=== PATIENT | female | born 1935 | race Caucasian/White ===

== ENCOUNTER 2016-12-06 14:32 | Observation (INO) ==
--- NOTE | 2016-12-06 14:54 | Cat Scan Report ---
CLINICAL INFORMATION: Code stroke - extremity weakness COMPARISON: 01/22/2014. TECHNIQUE: 2.5 mm helical slices were obtained in the skull base to vertex. Following reconstruction, axial reformatted images were reviewed at bone and parenchymal windows. FINDINGS: The ventricles, sulci, fissures, and cisterns are normal in size and configuration. No extra-axial fluid collections are identified. The cerebrum, brainstem and cerebellum are unremarkable. There is no evidence of hemorrhage, mass effect, or edema. Bone windows show no osseous abnormality. IMPRESSION: Normal head CT without contrast. Interpreted and Authenticated by: Deandre Gustafson 12/06/16
[2016-12-06 15:12] LABS: Basophils # (Auto) 0 K/mcL (0.0-0.3); Basophils % (Auto) 0.4 % (0.0-2.0); Eosinophils # (Auto) 0.2 K/mcL (0.0-0.7); Eosinophils % (Auto) 2.8 % (0.0-7.0); Granulocytes % (Auto) 57.1 % (38.0-78.0); Lymphocytes # (Auto) 2.4 K/mcL (1.5-4.8); Lymphocytes % (Auto) 32.6 % (15.5-49.0); Mean Cell Volume 88.1 fL (80.0-100.0); Mean Corpuscular HGB Conc 33.6 g/dL (31.0-36.0); Mean Corpuscular Hemoglobin 29.6 pg (26.0-34.0); Monocytes # (Auto) 0.5 K/mcL (0.1-0.9); Monocytes % (Auto) 7.1 % (1.0-12.0); Platelet Count 236 K/mcL (140-440); RBC 5.14 M/mcL (4.00-5.20); Red Cell Distribution Width 13.7 % (11.5-14.5)
[2016-12-06] MEDS ORDERED: hydrALAZINE 20 MG/ML VIAL IV ONE (15:17)
[2016-12-06] MEDS ORDERED: 0.9 % SODIUM CHLORIDE 1,000 ML IV ONE (15:45)
[2016-12-06 16:37] LABS: ALT/SGPT 15 U/l (0-40); Albumin 4.3 gm/dL (3.2-5.2); Albumin/Globulin Ratio 1.5 (1.0-2.3); Alkaline Phosphatase 86 U/L (39-117); Blood Urea Nitrogen 13 mg/dl (8-23)
--- NOTE | 2016-12-06 16:57 | Emergency Department Note ---
Neuro HPI - General Chief Complaint: Neuro Symptoms/Deficit Stated Complaint: Neuro deficit Time Seen by Provider: 12/06/16 14:45 Source: patient Mode of arrival: ambulatory Limitations: no limitations - History of Present Illness HPI Narrative: 80-year-old female who comes in for left-sided weakness, left-sided facial droop , confusion and facial numbness within the last 1-2 hours. Was first noted by her who brought her in. Blood pressure is up at 193/100. Previous history of TIA about 6 months ago with complete resolution of symptoms. Denies nausea vomiting diarrhea recent illness fever chills. Initial NIH was 5 but improving; ABC score was 6 Her regular doctor, Dr. Lewis called me and discussed the case with me-he notes that he did an extensive workup on her about 8 months ago and did not find any cause for her TIA. Echo was noted to be near normal - Related Data Home Medications: Home Medications Medication Instructions Recorded Confirmed Losartan [Cozaar] 25 mg PO DAILY 12/06/16 12/06/16 Aspirin [Maria Luisa Chewable Aspirin] 81 mg PO DAILY 12/07/16 12/07/16 Calcium Carbonate [Calcium] 500 mg PO DAILY 12/07/16 12/07/16 Calcium/D3/Mag Ox/Recreational Therapy Technician/Louis/Zn 1 each PO DAILY 12/07/16 12/07/16 [Caltrate+D3 Plus Mineral Minis] Carboxymethylcellulose Sodium 15 ml OP PRN PRN 12/07/16 12/07/16 [Refresh Tears] Multivit-Min/Iron/Folic/Lutein 1 each PO DAILY 12/07/16 12/07/16 [Centrum Silver Women Tablet] Willard-3/Dha/Epa/Fish Oil [Fish Oil 1,000 mg PO DAILY 12/07/16 12/07/16 1,000 mg Softgel] Allergies/Adverse Reactions: Allergies Allergy/AdvReac Type Severity Reaction Status Date / Time Amoxicillin Allergy Mild Hives Verified 12/06/16 23:09 Review of Systems All systems ED: reviewed and negative except as stated. Past Medical History - Past Medical History Attestation: Yes: The following information was validated with the patient. Medical history: Reports: hypertension - Social History smoking status: Never smoker Physical Exam Normocephalic atraumatic. Conjunctive are clear sclerae nonicteric. No nasal discharge or congestion. Oropharynx is pink and moist. She does have a little bit of a left-sided nasolabial fold droop but this resolves with smiling. Her smile is symmetrical and her tongue is midline. Neck is supple without lymphadenopathy thyromegaly or carotid bruit. Heart is regular rate and rhythm no murmurs appreciated. Lungs are clear to auscultation bilaterally without wheezes rales rhonchi or respiratory distress. Abdomen is soft nontender nondistended. No peritoneal signs or guarding. No pedal edema. +2 radial pulse. Normal bilateral substation engineer. Do not detect any significant left-sided upper extremity weakness. Additionally she is able to lift both legs off the bed monitor time with approximately equal strength. Besides the left-sided nasolabial fold droop I do not see any focal deficits. Difficult to tell if she is actually confused because I do not know her baseline-however she is answering questions appropriately. There may be some short-term memory deficit. No dysarthria ataxia or tremor. Normal finger to nose testing. - General Limitations: no limitations Course Vital Signs Temperature 97.6 F 12/06/16 14:32 Pulse Rate 80 12/06/16 14:32 Respiratory Rate 18 12/06/16 14:32 Blood Pressure 193/100 12/06/16 14:32 Pulse Oximetry (%) 97 12/06/16 14:32 Temperature 96.7 F L 12/07/16 08:00 Pulse Rate 72 12/07/16 04:00 Respiratory Rate 20 12/07/16 08:00 Blood Pressure 158/75 12/07/16 08:00 Pulse Oximetry (%) 95 12/07/16 08:00 Neuro Symptoms/Deficit - Lab Data Lab results reviewed: Yes I reviewed the patient's lab results. Result diagrams: 12/07/16 04:15 12/07/16 04:15 Lab Results 12/06/16 12/06/16 12/06/16 Range/Units 14:22 14:42 14:43 WBC 7.3 (4.5-11.0) K/mcL RBC 5.14 (4.00-5.20) M/mcL Hgb 15.2 H (12.0-15.0) g/dL Hct 45.3 (36.0-48.0) % POC Hct 46.0 (36.0-48.0) % MCV 88.1 (80.0-100.0) fL MCH 29.6 (26.0-34.0) pg MCHC 33.6 (31.0-36.0) g/dL RDW 13.7 (11.5-14.5) % Plt Count 236 (140-440) K/mcL MPV 8.9 (7.4-10.4) fL Gran % 57.1 (38.0-78.0) % Lymph % (Auto) 32.6 (15.5-49.0) % [place] % (Auto) 7.1 (1.0-12.0) % Eos % (Auto) 2.8 (0.0-7.0) % Baso % (Auto) 0.4 (0.0-2.0) % Gran # 4.2 (1.8-8.0) K/mcL Lymph # (Auto) 2.4 (1.5-4.8) K/mcL [place] # (Auto) 0.5 (0.1-0.9) K/mcL Eos # (Auto) 0.2 (0.0-0.7) K/mcL Baso # (Auto) 0 (0.0-0.3) K/mcL POC PT (11.9-14.5) sec POC INR (0.9-1.2) APTT POC Sodium 140 (133-145) mmol/L Sodium TNP POC Potassium 4.4 (3.3-5.1) mmol/L Potassium TNP POC Chloride 103 (96-108) mmol/L Chloride TNP Carbon Dioxide TNP POC Total CO2 28 (22-30) mmol/L Anion Gap TNP POC BUN 18 (8-23) mg/dl BUN TNP Creatinine TNP POC Creatinine 0.9 (0.6-1.1) mg/dl GFR Calculation TNP BUN/Creatinine Ratio TNP Glucose TNP POC Glucose 95 (70-105) mg/dL Calcium TNP POC WB Ioniz Calcium 1.16 (1.16-1.32) mmol/L Total Bilirubin TNP AST TNP ALT TNP Alkaline Phosphatase TNP Troponin T Total Protein TNP Albumin TNP Globulin TNP Albumin/Globulin Ratio TNP Triglycerides 112 (<150) mg/dl Cholesterol 302 H (<200) mg/dl LDL Cholesterol, Calc 171 H (SEE CHART) mg/dl Non-HDL Cholesterol 193 H (LDL TARGET+30) HDL Cholesterol 109 (>40) mg/dl Urine Color Urine Appearance Urine pH (5.0-9.0) Ur Specific [place] (1.000-1.035) Urine Protein (NEG) mg/dL Urine Glucose (UA) (NEG) mg/dL Urine Ketones (NEG) mg/dL Urine Occult Blood (<0.03) mg/dL Urine Nitrate (NEG) Urine Bilirubin (NEG) mg/dL Urine Urobilinogen (NEG) mg/dL Ur Leukocyte Esterase (NEG) /uL Urine RBC (0-1) /hpf Urine WBC (0-4) /hpf Ur Squamous Epith Cells (0-4) /hpf Urine Bacteria (0) /hpf Ur Culture Indicated? 12/06/16 12/06/16 12/06/16 Range/Units 14:43 14:55 15:45 WBC (4.5-11.0) K/mcL RBC (4.00-5.20) M/mcL Hgb (12.0-15.0) g/dL Hct (36.0-48.0) % POC Hct (36.0-48.0) % MCV (80.0-100.0) fL MCH (26.0-34.0) pg MCHC (31.0-36.0) g/dL RDW (11.5-14.5) % Plt Count (140-440) K/mcL MPV (7.4-10.4) fL Gran % (38.0-78.0) % Lymph % (Auto) (15.5-49.0) % [place] % (Auto) (1.0-12.0) % Eos % (Auto) (0.0-7.0) % Baso % (Auto) (0.0-2.0) % Gran # (1.8-8.0) K/mcL Lymph # (Auto) (1.5-4.8) K/mcL [place] # (Auto) (0.1-0.9) K/mcL Eos # (Auto) (0.0-0.7) K/mcL Baso # (Auto) (0.0-0.3) K/mcL POC PT 10.9 L (11.9-14.5) sec POC INR 0.9 (0.9-1.2) APTT TNP POC Sodium (133-145) mmol/L Sodium 140 POC Potassium (3.3-5.1) mmol/L Potassium 4.1 POC Chloride (96-108) mmol/L Chloride 102 Carbon Dioxide 25 POC Total CO2 (22-30) mmol/L Anion Gap 13.0 POC BUN (8-23) mg/dl BUN 13 Creatinine 0.9 POC Creatinine (0.6-1.1) mg/dl GFR Calculation 60 BUN/Creatinine Ratio Glucose 94 POC Glucose (70-105) mg/dL Calcium 9.6 POC WB Ioniz Calcium (1.16-1.32) mmol/L Total Bilirubin 0.8 AST 20 ALT 15 Alkaline Phosphatase 86 Troponin T TNP Total Protein 7.1 Albumin 4.3 Globulin 2.8 Albumin/Globulin Ratio 1.5 Triglycerides (<150) mg/dl Cholesterol (<200) mg/dl LDL Cholesterol, Calc (SEE CHART) mg/dl Non-HDL Cholesterol (LDL TARGET+30) HDL Cholesterol (>40) mg/dl Urine Color Urine Appearance Urine pH (5.0-9.0) Ur Specific [place] (1.000-1.035) Urine Protein (NEG) mg/dL Urine Glucose (UA) (NEG) mg/dL Urine Ketones (NEG) mg/dL Urine Occult Blood (<0.03) mg/dL Urine Nitrate (NEG) Urine Bilirubin (NEG) mg/dL Urine Urobilinogen (NEG) mg/dL Ur Leukocyte Esterase (NEG) /uL Urine RBC (0-1) /hpf Urine WBC (0-4) /hpf Ur Squamous Epith Cells (0-4) /hpf Urine Bacteria (0) /hpf Ur Culture Indicated? 12/06/16 12/06/16 12/06/16 Range/Units 15:45 15:45 17:17 WBC (4.5-11.0) K/mcL RBC (4.00-5.20) M/mcL Hgb (12.0-15.0) g/dL Hct (36.0-48.0) % POC Hct (36.0-48.0) % MCV (80.0-100.0) fL MCH (26.0-34.0) pg MCHC (31.0-36.0) g/dL RDW (11.5-14.5) % Plt Count (140-440) K/mcL MPV (7.4-10.4) fL Gran % (38.0-78.0) % Lymph % (Auto) (15.5-49.0) % [place] % (Auto) (1.0-12.0) % Eos % (Auto) (0.0-7.0) % Baso % (Auto) (0.0-2.0) % Gran # (1.8-8.0) K/mcL Lymph # (Auto) (1.5-4.8) K/mcL [place] # (Auto) (0.1-0.9) K/mcL Eos # (Auto) (0.0-0.7) K/mcL Baso # (Auto) (0.0-0.3) K/mcL POC PT (11.9-14.5) sec POC INR (0.9-1.2) APTT 27 POC Sodium (133-145) mmol/L Sodium POC Potassium (3.3-5.1) mmol/L Potassium POC Chloride (96-108) mmol/L Chloride Carbon Dioxide POC Total CO2 (22-30) mmol/L Anion Gap POC BUN (8-23) mg/dl BUN Creatinine POC Creatinine (0.6-1.1) mg/dl GFR Calculation BUN/Creatinine Ratio Glucose POC Glucose (70-105) mg/dL Calcium POC WB Ioniz Calcium (1.16-1.32) mmol/L Total Bilirubin AST ALT Alkaline Phosphatase Troponin T < 0.01 Total Protein Albumin Globulin Albumin/Globulin Ratio Triglycerides (<150) mg/dl Cholesterol (<200) mg/dl LDL Cholesterol, Calc (SEE CHART) mg/dl Non-HDL Cholesterol (LDL TARGET+30) HDL Cholesterol (>40) mg/dl Urine Color Straw Urine Appearance Clear Urine pH 8.0 (5.0-9.0) Ur Specific [place] 1.004 (1.000-1.035) Urine Protein Neg (NEG) mg/dL Urine Glucose (UA) Negative (NEG) mg/dL Urine Ketones Neg (NEG) mg/dL Urine Occult Blood 0.03 A (<0.03) mg/dL Urine Nitrate Neg (NEG) Urine Bilirubin Neg (NEG) mg/dL Urine Urobilinogen Neg (NEG) mg/dL Ur Leukocyte Esterase Neg (NEG) /uL Urine RBC < 1 (0-1) /hpf Urine WBC 0 (0-4) /hpf Ur Squamous Epith Cells 0 (0-4) /hpf Urine Bacteria 0 (0) /hpf Ur Culture Indicated? No - Radiology Data Radiology results reviewed: Yes I reviewed the patient's radiology results. Head CT showed no acute abnormality - EKG Data EKG attestation: Yes I reviewed and interpreted this EKG. EKG results narrative: EKG shows a rate of 66 normal sinus rhythm Disposition Clinical Impression: TIA (transient ischemic attack) Qualifiers: Transient cerebral ischemia type: unspecified Qualified Code(s): G45.9 - Transient cerebral ischemic attack, unspecified Summary: Likely TIA with most symptoms resolving-rapidly improving. I discussed the situation with tele-stroke Dr. Deyanira Wu who felt while the patient was a TPA candidate her symptoms were rapidly improving and therefore did not warrant the risk. She recommended patient be admitted for observation. To that end I discussed the case with Dr. Estes hospitalist who agreed to accept the patient Disposition: Xfer As Inpt ([facility]) Condition: Fair
--- NOTE | 2016-12-06 17:54 | Internal Med History&Physical ---
Medical - H&P: HPI Patient information: Note initiated : 12/06/16 at 5:50 pm Service Date, if different from initiated Date: [] Patient: Melvi Mann a 80 y/o F admitted on for Neuro deficit. Chief Complaint: [] History of present illness: Ms. Mann is a 80 year old F with h/o htn brought in by her as she was acting confused and left side weakness, and facial droop The patient notes she remembers going to [place] for lunch, coffee. She was ok on the way back but very anxious and was crying and hyperventilating in the car while her drove back. ( she admits she is very anxious in the car when he drives). In the house she was in [facility] garden and then remembers her bringing her to the hospital. not available at bedside to verify story, pt next remembers being in the hospital As per the chart notes pt presented with Aoox3, slight left facial droop, some left upper extremity weakness, some confusion and perioral numbness. Stroke protocol activiated and patient had CT head and mri head which is negative, EKG , and labs. Tele stroke saw the patient, clinically improving, NIHSS score was 5 on prestation with rapid improvement, TPA not given Patient was advised to be admitted for observation. The patient has had similar episode in the past, nearly 6 months ago, not sure about the workup. takes asa and losartan. BP runs high even at home as per patient. All systems: reviewed and no additional remarkable complaints except as stated ( as per HPI.) Medical - H&P: PMH Medical history: HTN TIA anxiety Surgical history: tonsillectomy Pertinent family history: father with heart issues no h/o cva Social history: non smoker social etoh no drugs lives with . Medical - H&P: Meds Home Medications Medication Instructions Recorded Confirmed Type Losartan [Cozaar] 25 mg PO DAILY 12/06/16 12/06/16 History Allergies Allergy/AdvReac Type Severity Reaction Status Date / Time Unable to Assess Allergy Unverified 12/06/16 14:47 Medical - H&P: Exam - Constitutional Vitals: Temp Pulse Resp BP Pulse Ox 97.6 F 80 14 160/82 100 12/06/16 14:32 12/06/16 17:15 12/06/16 17:15 12/06/16 16:46 12/06/16 17:15 Exam: GENERAL: The patient is a well-developed, well-nourished in no apparent distress. Is alert and oriented x3. VITAL SIGNS: Reviewed and as noted elsewhere. HEENT: Head is normocephalic and atraumatic. Extraocular muscles are intact. Pupils are equal, round, and reactive to light. Nares appeared normal. Mouth appears any without lesions. Mucous membranes are moist. NECK: Normal to inspection, Supple, No lymphadenopathy or thyromegaly. LUNGS: Air entry equal on both sides, no wheezing, crackles or rhonchi noted. No accessory muscles of respiration HEART: Regular rate and rhythm normal, S1 and S2 heard, no Gallop, S3 or Rub Noted, No Gross murmur heard. ABDOMEN: Soft, nontender, and nondistended. Positive bowel sounds. No hepatosplenomegaly was noted. EXTREMITIES: No cyanosis, clubbing, rash, lesions or edema. NEUROLOGIC: CN 7, mild left droop, rest of CN normal, aoox3, moving all extremities, normal sensation to touch, 5/5 strength in all extremities. PSYCHIATRIC: Normal affect, Normal Mood. Appropriate Behavior. SKIN: No ulceration or wounds noted, No jaundice, No rash noted. Medical - H&P: Reslt - Labs CBC & Chem 7: 12/06/16 14:43 12/06/16 15:45 Labs: Short CBC 12/06/16 Range/Units 14:43 WBC 7.3 (4.5-11.0) K/mcL Hgb 15.2 H (12.0-15.0) g/dL Hct 45.3 (36.0-48.0) % Plt Count 236 (140-440) K/mcL BMP 12/06/16 12/06/16 14:42 15:45 Sodium TNP 140 Potassium TNP 4.1 Chloride TNP 102 Carbon Dioxide TNP 25 BUN TNP 13 Creatinine TNP 0.9 Glucose TNP 94 Calcium TNP 9.6 Cardiac Enzymes 12/06/16 12/06/16 Range/Units 14:43 15:45 Troponin T TNP < 0.01 Liver Function 12/06/16 12/06/16 Range/Units 14:42 15:45 Total Bilirubin TNP 0.8 AST TNP 20 ALT TNP 15 Alkaline Phosphatase TNP 86 Albumin TNP 4.3 - EKG Data EKG comments: 12/06/16 17:58 LEft axis lafb sinus rhythm no old ekg. Medical - H&P: A/P - Narrative A/P Narrative: a/p TIA Risk factors, HTN, HLD as per pt, Age CT and MRI head neg Get MRA head and MRA neck Get echo monitor on tele Given second episode of TIA, stop ASA and start on clopidogrel get lipid profile, check A1c Start on pravastatin, pt reports intolerance to statin in the past, will try and see if she can tolerate this one. Consider coq 10 if needed. HTN \ BP uncontrolled increase dose of losartan to 50mg qdaily, DVT hep sq (no cva on Ct, no bleed) Full code
[2016-12-06 18:37] LABS: Appearance,Urine CLEAR; Bacteria,Urine 0 /hpf (0); Bilirubin,Urine NEG (NEG); Color,Urine STRAW; Glucose,Urine (UA) NEGATIVE (NEG); Leukocyte Esterase,Urine NEG /uL (NEG); Nitrate,Urine NEG (NEG); Protein,Urine NEG (NEG); Specific Gravity,Urine 1.004 (1.000-1.035); Urine Blood 0.03 mg/dL (<0.03); Urine RBC < 1 /hpf (0-1); Urine Squamous Epithelial Cell 0 /hpf (0-4); Urine WBC 0 /hpf (0-4); Urobilinogen,Urine NEG (NEG)
[2016-12-06] MEDS ORDERED: IOPAMIDOL 100 ML BOTTLE IJ ONE (19:13)
[2016-12-06] MEDS ORDERED: MAGNESIUM HYDROXIDE 30 ML ORAL.SUSP PO PRN (19:24)
[2016-12-06] MEDS ORDERED: ACETAMINOPHEN 325 MG TABLET PO PRN (19:24)
[2016-12-06] MEDS ORDERED: ONDANSETRON 4 MG/2 ML VIAL IV PRN (19:24)
[2016-12-06] MEDS ORDERED: NALOXONE HCL 0.4 MG/ML VIAL IV PRN (19:24)
[2016-12-06] MEDS ORDERED: HYDROcodone/APAP 5/325MG TABLET PO PRN (19:24)
[2016-12-06] MEDS: 0.9 % SODIUM CHLORIDE 1,000 ML IV SCH (19:50)
[2016-12-06] MEDS: HEPARIN 5,000 UNIT/ML VIAL SQ SCH (20:00)
[2016-12-06] MEDS: CLOPIDOGREL 75 MG TABLET PO SCH (20:00)
[2016-12-06] MEDS: SIMVASTATIN 20 MG TABLET PO SCH (20:00)
[2016-12-06 20:10] LABS: HDL Cholesterol 109 mg/dl (>40); LDL Cholesterol,Calculated 171 mg/dl (SEE CHART)
[2016-12-07 05:22] LABS: Basophils # (Auto) 0.1 K/mcL (0.0-0.3); Basophils % (Auto) 0.6 % (0.0-2.0); Eosinophils # (Auto) 0.2 K/mcL (0.0-0.7); Granulocytes % (Auto) 54.4 % (38.0-78.0); Lymphocytes # (Auto) 2.7 K/mcL (1.5-4.8); Lymphocytes % (Auto) 33.5 % (15.5-49.0); Mean Cell Volume 88.2 fL (80.0-100.0); Mean Corpuscular HGB Conc 34.3 g/dL (31.0-36.0); Mean Corpuscular Hemoglobin 30.3 pg (26.0-34.0); Monocytes # (Auto) 0.7 K/mcL (0.1-0.9); Monocytes % (Auto) 8.5 % (1.0-12.0); Platelet Count 215 K/mcL (140-440); RBC 4.65 M/mcL (4.00-5.20); Red Cell Distribution Width 13.9 % (11.5-14.5)
[2016-12-07 05:40] LABS: ALT/SGPT 14 U/l (0-40); Albumin 3.6 gm/dL (3.2-5.2); Albumin/Globulin Ratio 1.4 (1.0-2.3); Alkaline Phosphatase 75 U/L (39-117); Bilirubin,Direct < 0.2 mg/dL (0.0-0.3); Blood Urea Nitrogen 12 mg/dl (8-23); Gamma Glutamyl Transpeptidase 10 U/L (5-36); Magnesium 2.1 mg/dL (1.6-2.5); Uric Acid 5.1 mg/dL (2.5-8.0)
[2016-12-07] MEDS: CLOPIDOGREL 75 MG TABLET PO SCH (08:32)
[2016-12-07] MEDS: HEPARIN 5,000 UNIT/ML VIAL SQ SCH ×2 (08:32→21:07)
[2016-12-07] MEDS: LOSARTAN 25 MG TABLET PO SCH (08:32)
[2016-12-07] MEDS: 0.9 % SODIUM CHLORIDE 1,000 ML IV SCH ×2 (09:53→23:38)
--- NOTE | 2016-12-07 11:20 | Magnetic Resonance Report ---
CLINICAL INFORMATION: TIA COMPARISON: None. TECHNIQUE: 3D [id number] SPGR was used to study the cerebral vasculature. FINDINGS: The signal within the intracranial cerebral arteries with diminished. The intracranial internal carotid, anterior and middle cerebral, vertebral basilar and posterior cerebral arteries are all grossly normal. Axial diffusion images show no evidence of restricted diffusion to suggest acute infarct IMPRESSION: Suboptimal study, but no significant abnormality. Consider cerebral CTA if patient can tolerate IV contrast Interpreted and Authenticated by: Deandre Gustafson 12/07/16
--- NOTE | 2016-12-07 11:22 | Magnetic Resonance Report ---
CLINICAL INFORMATION: TIA COMPARISON: None. TECHNIQUE:2D and [id number] and 3D MOTSA [id number] images were obtained prior to gadolinium. Following gadolinium, coronal 3D [id number] images were acquired. FINDINGS: The thoracic aortic arch is normal in contour and caliber. Aortic branching is conventional. There is mild (less than 50%) stenosis of the subclavian artery origin. The right subclavian, brachiocephalic, both common, internal and external carotid and vertebral arteries are widely patent. 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 The remaining exam is unremarkable Interpreted and Authenticated by: Deandre Gustafson 12/07/16
--- NOTE | 2016-12-07 12:21 | Internal Med Progress Note ---
Medical - PN: Subj Patient information: Note initiated : 12/07/16 at 12:19 pm Service Date, if different from initiated Date: [] Patient: Melvi Mann 80 y/o F admitted on 12/06/16 for Neuro deficit. Chief Complaint: [] Interval history: Patient seen examined doing well today, Neurological deficits resolved, she feels back to baseline Echo reveiwed with product developer, MRA head study was suboptimal. Will get CTA head. MRA Neck neg for severe stenosis. tele neg for significant arrythmia. Pertinent ROS: Denies headache, dizziness Denies chest pain, palpitations Denies cough or shortness of breath Denies abdominal pain, nausea or vomiting. - Constitutional Vitals: Vital Signs Temp Pulse Resp BP Pulse Ox 97.4 F 72 16 158/77 98 12/07/16 12:00 12/07/16 04:00 12/07/16 12:00 12/07/16 12:00 12/07/16 12:00 Period Temp Pulse Resp BP Sys/Lynn Pulse Ox Last 24 Hr 96.7 F-97.9 F 67-72 16-20 150-158/73-82 94-98 Intake and Output 12/06/16 12/07/16 12/07/16 21:59 05:59 13:59 Intake Total 360 / 1360 240 / 240 1200 / 1200 Output Total 400 / 400 275 / 275 Balance 360 / 1360 -160 / -160 925 / 925 Weight 138 lb 11.2 oz Intake & Output: Intake & Output 12/06/16 12/07/16 12/07/16 21:59 05:59 13:59 Intake Total 360 / 1360 240 / 240 1200 / 1200 Output Total 400 / 400 275 / 275 Balance 360 / 1360 -160 / -160 925 / 925 Weight 138 lb 11.2 oz Intake: IV 1000 / 1000 Sodium Chloride 0.9% 1, 1000 / 1000 000 ml @ 75 mls/hr IV . [id number] [facility] Rx#:[id number] Oral 360 / 360 240 / 240 200 / 200 Output: Void Amount 400 / 400 275 / 275 Other: Meal Nourishment/Supplement Breakfast Percent of Meal Consumed 100% 100% Feeding Ability Independent # Voids 1 1 Exam: Constitutional; Afebrile, cooperative, alert, not in distress. Eyes- No icterus, , No periorbital swelling Ears- Ext ear normal, hearing normal to conversation. Neck- Midline trachea, supple Respiratory system: Air Entry equal on both sides, No crackles or wheezing, no rhonchi. CVS- Rate rhythm regular, S1,S2 heard, no gallop, no rub. Abdomen- Soft nontender abdomen, no organomegaly, no tenderness, no guarding or rigidity, SKEIN SPOOLER- AOOx3, moving all extremities, no gross focal deficit noted. Medical - PN: Obj Da - Labs CBC & Chem 7: 12/07/16 04:15 12/07/16 04:15 Labs: Abnormal Lab Results 12/07/16 04:15 Calcium 8.4 L Meds: Medications Acetaminophen (Tylenol) 650 mg PO Q6HP PRN PRN Reason: PAIN/FEVER > 101 Last Admin: 12/07/16 02:56 Dose: 650 mg Hydrocodone Bitart/Acetaminophen ([place] 5/325mg) 1 tab PO Q4HP PRN PRN Reason: Pain Clopidogrel Bisulfate (Plavix) 75 mg PO DAILY [facility] Last Admin: 12/07/16 08:32 Dose: 75 mg Heparin Sodium (Porcine) (Heparin) 5,000 unit SQ Q12 [facility] Last Admin: 12/07/16 08:32 Dose: 5,000 unit Sodium Chloride (Sodium Chloride 0.9%) 1,000 mls @ 75 mls/hr IV .[id number] [facility] Last Admin: 12/07/16 09:53 Dose: 75 mls/hr Losartan Potassium (Cozaar) 50 mg PO DAILY [facility] Last Admin: 12/07/16 08:32 Dose: 50 mg Magnesium Hydroxide (Milk Of Magnesia) 30 ml PO DAILYP PRN PRN Reason: Constipation Naloxone HCl (Narcan) 0.1 mg IV Q2MIN PRN PRN Reason: Opiate Reversal Ondansetron HCl (Zofran) 4 mg IV Q4HP PRN PRN Reason: Nausea And Vomiting Simvastatin (Zocor) 20 mg PO HS [facility] Last Admin: 12/06/16 20:00 Dose: 20 mg Medical - PN: A/P - Time Spent With Patient Total time spent is greater than 50% in coordination of care (as documented) at patient's floor/unit and/or counseling patient: - Narrative A/P Narrative: a/P TIA: resolved, CTA head pending, Echo done has MR mild to moderate, no la lv thrombus, noted. tele neg, MRA neck neg, CTA head pending. MRI head was not done this visit. HTN: BP uncontrolled, on losartan 50, start on amlodipine 5mg qd HLD: high LDL and HDL, started on statins, DVT hep sq Diet Cardiac dispo likely d/c home today evening or tomorrow. Medical - PN: Qual - Stroke Onset of Symptoms Date: 12/06/16 Onset of Symptoms Time: 11:30 Symptom Onset Unknown: No - VTE Deep Vein Thrombosis/Pulmonary Embolism Present on Admission: No
[2016-12-07] MEDS: amLODIPine 5 MG TABLET PO SCH (12:44)
--- NOTE | 2016-12-07 19:29 | Cat Scan Report ---
CLINICAL INFORMATION: TIA: COMPARISON: None. TECHNIQUE: 80 cc of Isovue-300 were injected intravenously , and using SmartPrep to maximize cerebral arterial opacification, 0.625 mm helical slices were obtained from the skull base through the cerebral vertex. Following reconstruction , sagittal, coronal and axial reformatted images were processed and reviewed at multiple windows and levels. 3D volume rendered and MIP images were also obtained at an independent workstation. FINDINGS: The intracranial internal carotid, anterior and middle cerebral, intracranial vertebral basilar and posterior arteries and branches are normal in contour and caliber with no evidence of occlusion, stenosis or other abnormality. The superficial and deep cerebral veins and venous sinuses are widely patent IMPRESSION: Normal Interpreted and Authenticated by: Deandre Gustafson 12/07/16
[2016-12-07] MEDS: SIMVASTATIN 20 MG TABLET PO SCH (21:07)
[2016-12-08] MEDS ORDERED: ASPIRIN 81 MG TAB.CHEW PO SCH (09:00)
[2016-12-08] MEDS: amLODIPine 5 MG TABLET PO SCH (09:30)
[2016-12-08] MEDS: HEPARIN 5,000 UNIT/ML VIAL SQ SCH (09:30)
[2016-12-08] MEDS: LOSARTAN 25 MG TABLET PO SCH (09:30)
[2016-12-08] MEDS: CLOPIDOGREL 75 MG TABLET PO SCH (09:30)
[2016-12-08] MEDS: 0.9 % SODIUM CHLORIDE 1,000 ML IV SCH (11:54)
--- NOTE | 2016-12-08 13:01 | Echocardiogram Report ---
ECHOCARDIOGRAM: 2-D and M-mode echocardiography with cardiac Doppler and color flow imaging were performed with a [employer] Aplio MX. Indication is TIA. Overall size of the four cardiac chambers and aortic root appeared normal as did LV wall thickness and systolic performance. Estimated ejection fraction is 65%. The aortic valve appeared trileaflet. Light leaflet calcification consistent with age was present. Valve opening appeared adequate and there was no evidence for aortic stenosis or aortic regurgitation by Doppler interrogation. The mitral leaflets exhibited nonspecific thickening. Mitral annular calcification was present. Doppler interrogation of LV inflow disclosed prolonged early diastolic deceleration time and "s'' wave dominance. The pulmonic valve was not visualized. Pulmonary artery acceleration time appeared normal. There was no evidence for pulmonic stenosis or pulmonic regurgitation. Tricuspid regurgitation, probably mild (1+), was noted. No intracardiac shunting was appreciated. There was no evidence for pericardial effusion. The IVC was of normal diameter and showed normal respiratory variation. Sinus calculated estimated of PA systolic pressure was normal at 30 mmHg. Sinus rhythm, rate 90, was present. CONCLUSION: Mitral annular calcification/nonspecific mitral leaflet thickening with eccentric mitral regurgitation appearing moderate to moderately severe. (2-3+). Findings were discussed with Casie Estes MD, 9:40 am, 12/07/2016. Since previous study 01/27/14 there are probably no major changes. ECHOCARDIOGRAPHY M-MODE CALCULATIONS: HT: 53
[2016-12-08] MEDS ORDERED: ATORVASTATIN 20 MG TABLET PO STA (14:47)
--- NOTE | 2016-12-08 14:54 | Discharge Summary ---
Medical - DS: Prov Patient information: Note initiated : 12/08/16 at 2:49 pm Patient: Melvi Mann 80 y/o F admitted on 12/06/16 for Neuro deficit. Date of admission: 12/06/16 19:12 Discharge date: 12/08/16 [id number] Admitting clinician: Casie Estes Attending physician on discharge: Nakia Cano Medical - DS: Meds - Discharge Medications Prescriptions: Atorvastatin [Lipitor] 20 mg PO HS #30 tablet Clopidogrel Bisulfate [Plavix] 75 mg PO DAILY #30 tablet Hydrochlorothiazide [Oretic] 12.5 mg PO DAILY #30 capsule Active and Home Medications: new home medication list: atorvastatin 20 mg daily at bedtime Aspirin 81 mg daily, 30 days only, then DC Plavix 75 mg by mouth daily HCTZ12.5 mg by mouth every morning Losartan 50 mg daily refresh tears when necessary Calcium carbonate 500 mg daily Fish oil 1000 mg dailyMultivitamin 1 daily Caltrate one daily previous Home Medications; Losartan [Cozaar] 25 mg PO DAILY 12/06/16 [History Confirmed 12/06/16 Last Taken Unknown] Aspirin [Maria Luisa Chewable Aspirin] 81 mg PO DAILY 12/07/16 [History Confirmed Last Taken 12/06/16 08:00] Calcium Carbonate [Calcium] 500 mg PO DAILY 12/07/16 [History Confirmed Last Taken 12/06/16 08:00] Calcium/D3/Mag Ox/[employer]/Louis/Zn [Caltrate+D3 Plus Mineral Minis] 1 each PO DAILY 12/07/16 [History Confirmed 12/07/16 Last Taken 12/06/16 08:00] Carboxymethylcellulose Sodium [Refresh Tears] 15 ml OP PRN PRN 12/07/16 [ History Confirmed 12/07/16 Last Taken 12/06/16 08:00] Multivit-Min/Iron/Folic/Lutein [Centrum Silver Women Tablet] 1 each PO DAILY [History Confirmed 12/07/16 Last Taken 12/06/16 08:00] Presto-3/Dha/Epa/Fish Oil [Fish Oil 1,000 mg Softgel] 1,000 mg PO DAILY 12/07/16 [History Confirmed 12/07/16 Last Taken 12/06/16 08:00] Medical - DS: Hosp Hospital course: Mrs. Mann is a 80 year old female who presents with TIA symptoms. December 06, 2016: History of present illness: Ms. Mann is a 80 year old F with h/o htn brought in by her as she was acting confused and left side weakness, and facial droop The patient notes she remembers going to [employer] for lunch, coffee. She was ok on the way back but very anxious and was crying and hyperventilating in the car while her drove back. ( she admits she is very anxious in the car when he drives). In the house she was in the garden and then remembers her bringing her to the hospital. not available at bedside to verify story , pt next remembers being in the hospital As per the chart notes pt presented with Aoox3, slight left facial droop, some left upper extremity weakness, some confusion and perioral numbness. Stroke protocol activiated and patient had CT head and mri head which is negative, EKG , and labs. Tele stroke saw the patient, clinically improving, NIHSS score was 5 on presentation with rapid improvement, TPA not given Patient was advised to be admitted for observation. The patient has had similar episode in the past, nearly 6 months ago, not sure about the workup. takes asa and losartan. BP runs high even at home as per patient. December 08: Hospital course: the patient was admitted to telemetry. She was monitored for 2 days. She was started on Plavix and Zocor. Amlodipine was added for blood pressures that continued to run a bit high. she was doing fine yesterday, but was too anxious to return home. The plan was to discharge her this morning, but when I entered the room around 8 AM she and her nurse told me that she was again having left face and her oral numbness, as well as numbness of her left hand. She thinks her left hand may have been a bit weak as well. Neuro exam at that time was completely normal. Symptoms subsequently resolved spontaneously. Echocardiogram report from Friday was obtained, and was notable really only for mitral annular calcifications with some thickening and eccentric mitral regurgitation that was rated as moderate to moderately severe. i did contact Dr. Tatum, of neurology, at [facility] in [place]. I reviewed the echocardiogram, and CTA of her head and neck with her. She suggested that we continue with Plavix. She also recommended adding back aspirin 81 mg a day, for 30 days only. Continue new statin drug, and recheck lipid panel in approximately 4 weeks. The patient's cholesterol was high here. She said we might also consider a 30 day Holter monitor, to rule out silent A. fib. Currently, the patient is feeling fine. she otherwise denies any new neurologic symptoms. She denies chest pain or palpitations, shortness of breath, nausea or vomiting, diarrhea or constipation, Or dysuria. She does report that she had a large bowel movement last night, and her right lower quadrant area feels a bit sore right now. on exam, she is awake and alert, calm and cooperative. Neck is supple without obvious lymphadenopathy, JVD, carotid bruits. Cardiac exam shows regular rate and rhythm, with normal S1 and S2. She does have an S2 click sound, and a soft murmur. Lungs: Clear to auscultation. Abdomen: Is soft and nontender. Extremities: Show no edema. Neurologic exam: he patient is alert and oriented 3. Mood and affect appear normal, although she is a bit tearful later in the day, when discussing going back home. Cranial nerves II through XII are grossly intact. The right pupil is a bit smaller than the left, but she reports this is chronic. motor:She has 4+ to 5 strength in both hands, and armflexion and extension, leg flexion and extension. Cerebellar: There is no tremor. There is no pronator drift. [id number] exam is intact. sensory: Is intact to soft touch, throughout. Deep tendon reflexes: Are quite brisk at the biceps, patellae. Toes are downgoing. Assessment and plan: #1. Neurologic. This patient presents with symptoms of TIA. Symptoms did recur this morning. Case was reviewed with Dr. West of neurology, from [facility] in [place] -Continue aspirin 81 mgdaily, 30 days only. -plavix 75 mg daily -Start Lipitor 20 mg daily at bedtime. he patientsays she may not have tolerated statins in the past. Lipitor may need to be changed to something else such as Crestor or pravastatin. Also consider adding coenzyme Q10. -continue losartan. -add HCTZ 12.5 mg every morning. Continue to monitor blood pressure, with goal of less than 140/85, after today. -per neurology, consider 30 day heart monitor, to rule out occult atrial fibrillation. -Recheck lipid profile in approximately 4 weeks. #2. Hypertension. continue losartan. Add HCTZ. Continue to monitor at home. Check follow-up labs in about 1 week. #3. CODE STATUS: Full code. 34. Anxiety. The patient and her have been noted to be arguing in the room. I strongly encouraged her to stay calm for the next week, and to not overexert herself. I reviewed this with the as well. today's visit took approximately 60 minutes, to review test results, track down her echocardiogram results, interview and examine her review plan of care with both the patient and her , as well as nursing staff, and also with neurology. Discharge diagnosis: TIA, resolved - Time Spent with Patient Total time spent providing and/or coordinating discharge services: Medical - DS: Exam - Constitutional Vitals: Vital Signs Temp Pulse Resp BP Pulse Ox 12/08/16 11:54 97.7 F 16 149/63 98 12/08/16 08:45 153/65 96 12/08/16 08:00 96.8 F L 16 148/79 96 12/08/16 03:34 97.6 F 66 14 151/71 97 12/07/16 23:27 97.5 F 80 16 156/75 95 12/07/16 19:01 98.1 F 88 18 158/80 98 12/07/16 16:55 97.9 F 16 134/77 97 Intake and Output 12/08/16 12/08/16 12/08/16 05:59 13:59 21:59 Intake Total 1180 / 1180 180 / 180 Output Total 600 / 600 500 / 500 Balance 580 / 580 -320 / -320 Intake: IV 1000 / 1000 Sodium Chloride 0.9% 1, 1000 / 1000 000 ml @ 75 mls/hr IV . [id number] [facility] Rx#:[id number] Oral 180 / 180 180 / 180 Output: Void Amount 600 / 600 500 / 500 Other: Meal Breakfast Percent of Meal Consumed 50% Medical - DS: Data Procedures and tests throughout hospitalization: CBC from December 07: White blood cell count 8.0, hemoglobin 14, hematocrit 41, platelets 215,000 normal differential Pro time was 10.9, with INR of 0.9 PTT 27 Chemistry panel from December 07:ormal electrolytes. Total calcium of a low of 8.4. Magnesium and LFTs are within normal limits. Troponin was normal at less than 0.01. Lipid panel: Total cholesterol 302, LDL cholesterol 171 HDL 109 Urinalysis showed trace occult blood, and was otherwise normal EKG: Shows normal sinus rhythm at a rate of 67, with LVH. Left axis deviation. No obvious acute ischemic changes. CT angiogram of the head; Was essentially normal. 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 The remainder of the exam was normal. MR angiogram of the brain: Was a suboptimal study, but showed no significant abnormality. Echocardiogram: Shows mitral annular calcification with eccentric mitral regurgitation, moderate to moderately severe. 4 chambers of the heart appeared normal. Ejection fraction normal at 65%. Medical - DS: A/P - Patient/Caregiver Discharge Instructions Activity: increase activity as tolerated Diet: Low Sodium (2gm) Additional Instructions: #1. Continue aspirin, 81 mg, one a day, for 30 days, then stop. #2. Start new medications; -Plavix/clopidogrel: 75 mgonce a day. -Lipitor/atorvastatin: 20 mg each evening E her doctor knowif you're having troubletolerating. -HCTZ 12.5 mg one every morning. #3. Please check your blood pressure twice a day. Call your doctor if blood pressure is runningless than 120/80, or greater darby 150/90. #4. Continue losartan, and other home medications. #5. Please call Dr. Lewis for a follow-up appointment this week. -Please ask him to arrange a 30 day heart monitor -If you have recurrent symptoms of stroke or TIA, please call 911, and return to the emergency room. Prescriptions: Atorvastatin [Lipitor] 20 mg PO HS #30 tablet Clopidogrel Bisulfate [Plavix] 75 mg PO DAILY #30 tablet Hydrochlorothiazide [Oretic] 12.5 mg PO DAILY #30 capsule - Follow up Plan Follow up with: Jeovanny Lewis MD [Primary Care Provider] - Disposition: Home, Self-Care Prognosis: Good Rehab Potential: Good I certify that the patient requires SNF services: No Overall status at discharge: patient is back to baseline Medical - DS: Qual - VTE Deep Vein Thrombosis/Pulmonary Embolism Present on Admission: No
[2016-12-09] MEDS ORDERED: HYDROCHLOROTHIAZIDE 12.5 MG CAPSULE PO SCH (09:00)
== END 2016-12-08 16:45 | disposition home or self-care (01) ==
LOC: ICU 14:32 → ED 14:32 → SUATTDRO 19:12 → ICU 19:15
PROVIDERS: ADMIT Internal Medicine; ATTEND Internal Medicine

== ENCOUNTER 2023-10-09 15:52 | Inpatient (IN) ==
[2023-10-09 16:53] LABS: Basophils # (Auto) 0.05 K/mcL (0.00-0.30); Basophils % (Auto) 0.4 % (0.0-2.0); Eosinophils # (Auto) 0.06 K/mcL (0.00-0.70); Eosinophils % (Auto) 0.5 % (0.0-7.0); Hematocrit 56.5 % (34.1-44.9); Hemoglobin 18.1 g/dL (11.2-15.7); Lymphocytes # (Auto) 3.03 K/mcL (1.50-4.80); Lymphocytes % (Auto) 27.1 % (15.5-49.0); Mean Cell Volume 87.6 fL (80.0-100.0); Mean Platelet Volume 9.8 fL (8.8-12.5); Monocytes # (Auto) 0.66 K/mcL (0.10-0.90); Monocytes % (Auto) 5.9 % (1.0-12.0); Neutrophils % (Auto) 65.9 % (38.0-78.0); Platelet Count 272 K/mcL (140-440); RBC 6.45 M/mcL (3.59-5.38); Red Cell Distribution Width 17.5 % (11.5-14.5); WBC 11.2 K/mcL (4.5-11.0)
[2023-10-09 17:15] LABS: Thyroid Stimulating Hormone 4.98 uIU/mL (0.27-5.01)
[2023-10-09 17:23] LABS: ALT/SGPT 178 U/L (<40); AST/SGOT 182 U/L (<32); Albumin 3.2 gm/dL (3.2-5.2); Albumin/Globulin Ratio 0.8 (1.0-2.3); Alkaline Phosphatase 214 U/L (39-117); Bilirubin,Total 2.1 mg/dL (0.1-1.0); Blood Urea Nitrogen 28 mg/dL (8-23); Calcium 8.7 mg/dL (8.6-10.4); Carbon Dioxide 25 mmol/L (22-30); Chloride 95 mmol/L (96-108); Globulin 3.9 gm/dL (2.2-3.7); Glomerular Filtration Rate 31; Glucose 146 mg/dL (70-105)
[2023-10-09] MEDS: DOXYCYCLINE HYCLATE 100 MG TABLET.ORL PO ONE (18:25)
[2023-10-09 19:46] LABS: Appearance,Urine Clear (Clear); Bacteria,Urine 0 /hpf (0); Bilirubin,Urine Negative (Negative); Color,Urine Yellow; Culture Indicated,Urine No; Glucose,Urine (UA) Negative (Negative); Ketones,Urine Negative (Negative); Leukocyte Esterase,Urine Negative /uL (Negative); Nitrate,Urine Negative (Negative); PH,Urine 5.5 (5.0-9.0); Protein,Urine 100 mg/dL (Negative); Urine Blood Small ery/mcL (Negative); Urine RBC 0 /hpf (0-3); Urine Squamous Epithelial Cell 0 /hpf (0-4); Urine WBC 0 /hpf (0-4); Urobilinogen,Urine Normal
[2023-10-09] MEDS ORDERED: ACETAMINOPHEN 325 MG TABLET PO PRN (20:00)
[2023-10-09] MEDS ORDERED: IPRATROPIUM/ALBUTEROL 3 ML AMPUL.NEB NEB PRN (20:00)
[2023-10-09] MEDS ORDERED: ONDANSETRON 4 MG/2 ML VIAL IV PRN (20:00)
[2023-10-09] MEDS ORDERED: traZODone HCL 50 MG TABLET PO PRN (20:00)
[2023-10-09] MEDS ORDERED: METOPROLOL TARTRATE 5 MG/5 ML VIAL IV PRN (20:00)
[2023-10-09] MEDS ORDERED: guaiFENesin/DEXTROMETHORPHAN 5ML UD CUP PO PRN (20:00)
[2023-10-09] MEDS: 0.9 % SODIUM CHLORIDE 1,000 ML IV SCH (20:26)
[2023-10-09] MEDS: SENNOSIDES 1 TABLET PO SCH (20:26)
[2023-10-09] MEDS: METOPROLOL TARTRATE 50 MG TABLET PO SCH (20:26)
[2023-10-09] MEDS: DOCUSATE SODIUM 100 MG CAPSULE PO SCH (20:27)
[2023-10-09] MEDS: CARBOXYMETHYLCELLULOSE SODIUM 1 EACH DROPER.GEL OU SCH (20:27)
[2023-10-09] MEDS: APIXABAN 2.5 MG TABLET PO SCH (20:27)
[2023-10-09] MEDS: cefTRIAXone 1 GM VIAL IV SCH (20:28)
[2023-10-09] MEDS: ATORVASTATIN 40 MG TABLET PO SCH (20:28)
[2023-10-09] MEDS: 0.9 % SODIUM CHLORIDE 10 ML SYRINGE IV SCH (23:43)
[2023-10-09] MEDS: AZITHROMYCIN 500 MG in DEXTROSE 5% IN WATER 250 ML IV SCH (23:43)
[2023-10-10] MEDS ORDERED: IPRATROPIUM/ALBUTEROL 3 ML AMPUL.NEB NEB PRN (01:03)
[2023-10-10] MEDS ORDERED: 0.9 % SODIUM CHLORIDE 1,000 ML IV SCH (01:15)
[2023-10-10] MEDS ORDERED: morphine 2 MG/ML VIAL IV PRN (01:37)
[2023-10-10] MEDS: morphine 2 MG/ML VIAL IV ONE (01:38)
[2023-10-10 01:49] LABS: Basophils # (Auto) 0.06 K/mcL (0.00-0.30); Basophils % (Auto) 0.5 % (0.0-2.0); Eosinophils # (Auto) 0.02 K/mcL (0.00-0.70); Eosinophils % (Auto) 0.2 % (0.0-7.0); Hematocrit 55.3 % (34.1-44.9); Hemoglobin 16.8 g/dL (11.2-15.7); Lymphocytes # (Auto) 6.49 K/mcL (1.50-4.80); Lymphocytes % (Auto) 55.3 % (15.5-49.0); Mean Cell Volume 92.5 fL (80.0-100.0); Mean Corpuscular HGB Conc 30.4 g/dL (31.0-36.0); Mean Platelet Volume 10.9 fL (8.8-12.5); Monocytes # (Auto) 0.53 K/mcL (0.10-0.90); Monocytes % (Auto) 4.5 % (1.0-12.0); Neutrophils % (Auto) 38.8 % (38.0-78.0); Platelet Count 220 K/mcL (140-440); RBC 5.98 M/mcL (3.59-5.38); Red Cell Distribution Width 16.9 % (11.5-14.5); WBC 11.7 K/mcL (4.5-11.0)
[2023-10-10] MEDS ORDERED: ONDANSETRON 4 MG ODT TABLET SL PRN (01:52)
[2023-10-10] MEDS ORDERED: morphine 4 MG/ML VIAL NEB PRN (01:52)
[2023-10-10] MEDS ORDERED: morphine 20 MG/ML ML SL PRN (01:53)
[2023-10-10] MEDS: morphine 2 MG/ML VIAL ONE (02:00)
[2023-10-10] MEDS: LORazepam 2 MG/ML VIAL IV PRN (02:12)
[2023-10-10] MEDS: SCOPOLAMINE 1 PATCH PATCH TOPICAL SCH (02:23)
[2023-10-10] MEDS: LORazepam 2 MG/ML VIAL ONE ×2 (02:23→05:36)
[2023-10-10] MEDS: SCOPOLAMINE 1 PATCH PATCH ONE (02:23)
[2023-10-10] MEDS: morphine 4 MG/ML VIAL IV PRN (02:41)
[2023-10-10] MEDS: morphine 4 MG/ML VIAL ONE ×2 (02:42→05:36)
[2023-10-10] MEDS: 0.9 % SODIUM CHLORIDE 10 ML SYRINGE IV SCH (05:59)
[2023-10-10] MEDS: PANTOPRAZOLE 40 MG VIAL IV SCH (06:37)
[2023-10-10] MEDS: POTASSIUM CHLORIDE 10 MEQ TABLET PO SCH (07:35)
[2023-10-10] MEDS: CITALOPRAM 20 MG TABLET PO SCH (08:05)
[2023-10-10] MEDS: MULTIVIT,THER IRON,CA,FA & MIN 1 TABLET PO SCH (08:05)
[2023-10-10] MEDS: POLYETHYLENE GLYCOL 3350 17 GM PACKET PO SCH (08:05)
[2023-10-10] MEDS ORDERED: SODIUM BICARBONATE ADULT 50 MEQ/50 ML SYRINGE IV ONE (10:26)
[2023-10-10] MEDS ORDERED: EPINEPHrine 1 MG/10 ML (1:10,000) SYRINGE IV ONE (10:26)
== END 2023-10-10 10:27 | disposition expired | DRG 194 ==
LOC: ED 15:52 → MEDSUR 19:12
PROVIDERS: ADMIT Internal Medicine; ATTEND Internal Medicine